=== PATIENT | female | born 1960 | race Caucasian/White ===

== ENCOUNTER 2018-08-21 05:57 | Emergency (ER) | payer SELFPAY ==
[~2018-08-21] VITALS: Ht 162.6 cm; Wt 79.4 kg
[~2018-08-21 05:57] MED LIST: CLON2TAB12 PO; CYCL10TA7 PO; FIORICET PO; HYDR-762 PO; METF-849 PO; METF500T24 PO; METO10TA92 PO; OXYC-272 PO; PANT40TA4 PO; PROG100C5 PO; PROP80CA3 PO; SUMA50TA3 PO; THYR60TA PO; TOPI100T11 PO
[2018-08-21 06:02] VITALS: Ht 162.6 cm; Wt 79.4 kg
[2018-08-21] MEDS ORDERED: ONDANSETRON 4 MG INJ IV STA (06:19)
[2018-08-21] MEDS ORDERED: SOD CHLORIDE 0.9% 1,000 ML IV STA (06:19)
[2018-08-21] MEDS ORDERED: morphine 4 MG/ML VIAL IV STA (06:19)
[2018-08-21] MEDS ORDERED: FAMOTIDINE 20 MG INJ IV STA (06:19)
--- NOTE | 2018-08-21 07:33 | ERD ---
ER Documentation Chief Complaint Chief Complaint abdominal pain/vomiting x 3 days. states blood in vomit HPI This is a 57-year-old female with a history of chronic pain, migraines, and ulcers who presents to the ER for evaluation of abdominal pain, nausea and vomiting. The patient states that she has been seen by her primary care physician Dr. Taylor and has been taking OxyContin at home with moderate relief of her pain however the pain did not go away with her dosages this morning and she came to the ER for evaluation. She localizes the pain to the abdomen and states it is a crampy pain worse with food. She states that she has vomited once and thinks she noticed some blood in the vomit. She denies any dark stools. The p atient came to the ER today for evaluation. She denies any fevers chills, chest pain or shortness of breath ROS All systems reviewed and are negative except as per history of present illness. Medications Home Meds Active Scripts Acetamin/Butalbital/Caffeine* (Fioricet*) 1 Tab Tab, 1 TAB PO Q4H PRN for PAIN LEVEL 1-5, #10 TAB Prov:FRANCO BRAGG PA-C 10/01/15 Hydrocodone Bit-Acetaminophen* ([place]*) 10-325 Mg Tablet, 1 TAB PO Q6 PRN for PAIN, #14 TAB Prov:RAJNI GARNER DO 08/20/15 Metoclopramide* (Reglan*) 10 Mg Tablet, 10 MG PO Q6 PRN for NAUSEA AND/OR VOMITING, #10 TAB Prov:RAJNI GARNER DO 08/20/15 Reported Medications Metformin* (Glucophage*) 500 Mg Tab, 500 MG PO BID, #60 08/20/15 Propranolol Hcl* (Propranolol Hcl*) 80 Mg Cap.sa.24h, 80 MG PO DAILY, #30 08/20/15 Sumatriptan Succinate* (Sumatriptan Succinate*) 50 Mg Tablet, 50 MG PO BID PRN for HEADACHE, TAB May repeat after 2 hours if needed; MAX 200 mg/24 hours 07/12/15 Clonazepam* (Clonazepam*) 2 Mg Tablet, 2 MG PO BID PRN for AGITATION/ANXIETY, #60 07/12/15 Thyroid* ([place] Thyroid*) 60 Mg Tablet, 60 MG PO BID 07/12/15 Oxycodone Hcl-Acetaminophen* (Endocet*) 5-325 Mg Tablet, 1 TAB PO Q6 PRN for PAIN, TAB 07/12/15 Pantoprazole* (Pantoprazole*) 40 Mg Tablet.dr, 40 MG PO DAILY 07/12/15 Topiramate* (Topiramate*) 100 Mg Tablet, 100 MG PO TID, TAB 07/12/15 Progesterone,Micronized* (Progesterone*) 100 Mg Capsule, 100 MG PO HS, CAP 11/20/14 Cyclobenzaprine Hcl* (Cyclobenzaprine Hcl*) 10 Mg Tablet, 10 MG PO TID, TAB 11/20/14 Metformin Hcl* (Metformin Hcl*) 500 Mg Tablet, 500 MG PO BID, TAB 11/20/14 Allergies Allergies: Coded Allergies: azithromycin (Verified Allergy, Unknown, 08/21/18) iodine (Verified Allergy, Unknown, 08/21/18) latex (Verified Allergy, Unknown, 08/21/18) nitroglycerin (Verified Allergy, Unknown, 08/21/18) PMhx/Soc History of Surgery: Yes (hysterectomy, Right knee surgery) Anesthesia Reaction: No Hx Neurological Disorder: No Hx Respiratory Disorders: No Hx Cardiac Disorders: No Hx Psychiatric Problems: No Hx Miscellaneous Medical Probl: No Hx Alcohol Use: No Hx Substance Use: No Hx Tobacco Use: Yes Physical Exam Vitals Vital Signs Date Temp Pulse Resp B/P (MAP) Pulse Ox O2 O2 Flow FiO2 Time Delivery Rate 08/21/18 99.1 100 18 170/92 98 06:02 (118) Physical Exam Const: No acute distress Head: Atraumatic Eyes: Normal Conjunctiva ENT: Normal External Ears, Nose and Mouth. Neck: Full range of motion. No meningismus. Resp: Clear to auscultation bilaterally Cardio: Regular rate and rhythm, no murmurs Abd: Soft, non tender, non distended. Normal bowel sounds Skin: No petechiae or rashes Back: No midline or flank tenderness Ext: No cyanosis, or edema Neur: Awake and alert Psych: Normal Mood and Affect Result Diagram: 08/21/18 0644 08/21/18 0644 Results 24 hrs Laboratory Tests Test 08/21/18 06:44 White Blood Count 10.3 10^3/ul Red Blood Count 4.56 10^6/ul Hemoglobin 13.9 g/dl Hematocrit 41.4 % Mean Corpuscular Volume 90.8 fl Mean Corpuscular Hemoglobin 30.5 pg Mean Corpuscular Hemoglobin Concent 33.6 g/dl Red Cell Distribution Width 13.7 % Platelet Count 397 10^3/UL Mean Platelet Volume 9.3 fl Immature Granulocytes % 0.500 % Neutrophils % 63.8 % Lymphocytes % 28.4 % Monocytes % 5.2 % Eosinophils % 0.9 % Basophils % 1.2 % Nucleated Red Blood Cells % 0.0 /100WBC Immature Granulocytes # 0.050 10^3/ul Neutrophils # 6.6 10^3/ul Lymphocytes # 2.9 10^3/ul Monocytes # 0.5 10^3/ul Eosinophils # 0.1 10^3/ul Basophils # 0.1 10^3/ul Nucleated Red Blood Cells # 0.0 10^3/ul Sodium Level 139 mmol/L Potassium Level 3.5 mmol/L Chloride Level 96 mmol/L Carbon Dioxide Level 26 mmol/L Anion Gap 17 Blood Urea Nitrogen 13 mg/dl Creatinine 0.92 mg/dl Est Glomerular Filtrat Rate mL/min > 60 mL/min Glucose Level 147 mg/dl Calcium Level 9.8 mg/dl Total Bilirubin 0.4 mg/dl Direct Bilirubin 0.00 mg/dl Indirect Bilirubin 0.4 mg/dl Aspartate Amino Transf (AST/SGOT) 26 IU/L Alanine Aminotransferase (ALT/SGPT) 14 IU/L Alkaline Phosphatase 148 IU/L Total Protein 8.6 g/dl Albumin 4.9 g/dl Globulin 3.70 g/dl Albumin/Globulin Ratio 1.32 Lipase 35 U/L Current Medications Medications Dose Sig/[place] Start Time Status Last (Trade) Ordered Route PRN Stop Time Admin Dose Reason Admin Sodium 1,000 ml @ Q1H STAT 08/21/18 DC 08/21/18 Chloride 1,000 mls/hr IV 06:19 08/21/18 06:50 07:18 Morphine 4 mg ONCE STAT 08/21/18 DC 08/21/18 Sulfate IV 06:19 08/21/18 06:50 (morphine) 06:20 Ondansetron 4 mg ONCE STAT 08/21/18 DC 08/21/18 HCl (Zofran IV 06:08/21/18 06:50 Inj) 06:20 Famotidine 20 mg ONCE STAT 08/21/18 DC 08/21/18 (Pepcid Iv) IV 06:19 08/21/18 06:50 06:20 Procedures/MDM This 57-year-old female presents the ER for evaluation of abdominal pain and cramping. On my exam the patient has a nontender nondistended abdomen with bowel sounds all 4 quadrants no peritoneal signs. She is afebrile and nontoxic- appearing. Patient had a blood drawn, an IV was established. She was given IV fluids, 4 mg of Zofran, and formal grams of morphine. Lab work does not demonstrate any significant abnormalities. The patient states her pain has improved since receiving the morphine. She is asking for Dilaudid and Benadryl. I advised her it is not indicated for her condition and looking her previous medical records it does appear that she has a history of drug-seeking behavior. Given this patient's nonfocal examination and nontoxic appearance she will be discharged at this time with instructions to follow-up with her primary care physician for outpatient pain management. Differential diagnoses entertained was broad with potential high acuity. Patient has been evaluated for appendicitis, cholecystitis, and other high risk medical and surgical causes of abdominal pain. Ultimately the patient's evaluation is nondiagnostic. Based on the patient's lack of risk factors, as well as the patient's clinical, laborato ry, and imaging data, the patient appears to be low risk for these high risk causes of abdominal pain. Departure Diagnosis: Primary Impression: Abdominal pain Additional Impression: Abdominal colic Condition: SORAIDA Bowers DO Aug 21, 2018 07:33
[2018-08-21 08:05] VITALS: BP 141/91; PULSE 84; RESP 16
== END 2018-08-21 08:05 | disposition home or self-care (01) ==
LOC: E/R 05:57
DX: R10.84 Generalized abdominal pain (principal); R11.2 Nausea with vomiting, unspecified; Z79.84 Long term (current) use of oral hypoglycemic drugs; Z87.891 Personal history of nicotine dependence; Z91.040 Latex allergy status
CPT/HCPCS: 36415; 80053; 83690; 85025; 96374; 96375; 99284; J2270; J2405; J7030